=== PATIENT | male | born 1990 | race Caucasian/White ===

== ENCOUNTER 2018-03-05 18:47 | Emergency (ER) | payer BC ==
[~2018-03-05] VITALS: Ht 175.3 cm; Wt 91.0 kg
[2018-03-05 18:54] VITALS: TEMP 37; Ht 175.3 cm; Wt 91.0 kg
[2018-03-05] MEDS ORDERED: MoRPHine SULFATE 4 MG/ML 1 ML CARP\\VIAL IV STA ×2 (19:18→20:14)
[2018-03-05] MEDS ORDERED: ONDANSETRON INJ 2 MG/ML 2 ML VIAL IV STA ×2 (19:20→20:20)
--- NOTE | 2018-03-05 19:34 | EMERGENCY ROOM VISIT NOTE ---
ED Visit Note First contact with patient: 19:06 CHIEF COMPLAINT: Right ankle injury HISTORY OF PRESENTING ILLNESS: This is a 28-year-old male who presents to the emergency department with complaint of injury to his right ankle around 6 PM today. He states he was playing softball and slid into the base and caught his foot on the other player and then fell over top of his ankle. He reports significant swelling and deformity of the ankle and has been unable to walk on the ankle since the injury. He reports that he has normal feeling in the foot and has been able to move his toes. He states the pain is constant, throbbing, 6/10. He did not take any medications for the pain. He last ate at 11 AM today. He last drank at 7 PM just prior to arrival. He also notes that he had one beer around 5:30 PM today. He reports a previous injury to this ankle, states a grade 3 sprain, but denies any previous fractures. He states he also has some pain in the right calf. He denies hitting his head or loss of consciousness. He denies any other injuries. He denies any chest pain, shortness of breath, nausea or vomiting, or unusual rashes. REVIEW OF SYSTEMS: A complete 10 point review of systems was reviewed with the patient with pertinent positives and negatives as per history of present illness. All else were negative. PAST MEDICAL HISTORY: No significant past medical or surgical history. SOCIAL HISTORY: Lives at home. He denies tobacco use. He admits to occasional alcohol use. ALLERGIES: Reviewed in chart, see below. PHYSICAL EXAM: CONSTITUTIONAL: Pleasant and cooperative. No acute distress, but appears uncomfortable and in pain. Well appearing and well nourished. HEENT: Normocephalic, atraumatic. Pupils equal, round and reactive to light, EOMI. TMs normal. Pharynx normal. Moist mucous membranes. NECK: Supple, full active range of motion without discomfort. RESPIRATORY: Clear to auscultation bilaterally with no wheezing, crackles, rhonchi or stridor. Equal expansion bilaterally. CARDIOVASCULAR: Regular rate and rhythm with no murmurs, rubs or gallops. Normal peripheral perfusion. No edema. GASTROINTESTINAL: Soft, nontender, nondistended. No palpable masses or HSM. Bowel sounds present in all quadrants. MUSCULOSKELETAL: There is obvious deformity of the right ankle with apparent anteriorly dislocated ankle joint and tenting of the skin. There are no breaks of the skin or lacerations noted. DP and PT pulses are palpable and 2+, equal bilaterally. The foot is pink, warm, and well-perfused. Intact sensation of the foot. He is able to move the toes normally. He also has mild tenderness of the proximal fibula to palpation. INTEGUMENTARY: No rash or other significant dermatologic conditions noted. NEUROLOGIC: Alert and oriented X 4 with normal affect. Normal strength and sensation in all 4 extremities. No focal neurologic deficits noted. Normal speech. ED COURSE AND MEDICAL DECISION MAKING: CC: Patient presenting with complaint of right ankle injury DIFFERENTIAL DIAGNOSIS: Includes, but not limited to ankle dislocation, bimalleolar fracture, trimalleolar fracture, Maisonneuve fracture, calcaneal fracture, neurovascular injury, among others. IMAGING: R TIBIA/FIBULA 2 VIEWS ROUTINE CLINICAL HISTORY: Right ankle injury. COMPARISON: None FINDINGS: Note is made of an acute moderately displaced comminuted fracture which involves the proximal to mid shaft of the right fibula. There is disruption of the tibiotalar joint consistent with dislocation with multiple associated fracture fragments of the distal right tibia, including the posterior malleolus. Talar dome appears intact. A few nodules of soft tissue gas are suspected. IMPRESSION: 1. Fracture/dislocation deformity of the distal right tibia, as described above with disruption of the ankle mortise and multiple fracture fragments arising from the distal right tibia and a few locules of gas which raises the possibility of an open fracture. 2. Acute moderately displaced comminuted fracture of the proximal to mid shaft of the right fibula. ----- R ANKLE 2 VIEWS CLINICAL HISTORY: RIGHT ANKLE INJURY COMPARISON: None FINDINGS: Note is made of disruption of the ankle mortise with tibiotalar joint dislocation. The distal right tibia is located anterior to the talus. Several associated fracture fragments of the distal right tibia, including the posterior malleolus are noted. A few locules of soft tissue gas are noted. The mid shaft fibular fracture is better depicted on the right tibia and fibula radiographs. IMPRESSION: 1. Fracture/dislocation deformity of the distal right tibia, as described above with disruption of the ankle mortise and multiple fracture fragments arising from the distal right tibia and a few locules of gas which raises the possibility of an open fracture. 2. Acute moderately displaced comminuted fracture of the proximal to mid shaft of the right fibula. ----- R FOOT 2 VIEWS CLINICAL HISTORY: RIGHT ANKLE INJURY COMPARISON: None FINDINGS: Fracture/dislocation deformity of the distal right tibia and tibiotalar joint is better depicted on the right ankle radiographs. Tarsometatarsal joints are intact. No acute fracture within the right foot is identified. Subtalar joint appears intact. IMPRESSION: 1. No acute fracture within the right foot. 2. Tibiotalar joint dislocation/fracture deformity which is better depicted on the right ankle radiographs. ----- R ANKLE MIN 3 VIEWS ROUTINE CLINICAL HISTORY: Post reduction. COMPARISON: Right ankle radiographs March 05, 2018 at 7:32 PM. FINDINGS: Tibiotalar joint now appears aligned post reduction. Posterior malleolar fracture alignment has markedly improved and is only minimally distracted. A few small fracture fragments are noted. Talar dome appears intact. No residual ankle mortise widening is identified. IMPRESSION: Marked improvement in alignment of the fracture/dislocation of the right ankle, as described above. PROCEDURE NOTE: Right ankle reduction: Verbal and written consent obtained to perform the procedure. Time out was performed by Dr. Sosa. Conscious sedation performed by Dr. Sosa, see his note for more detail. Once appropriate sedation level achieved, the right ankle joint was reduced by myself by first placing the right foot in plantar flexion and providing axial traction to the joint, then gently dorsiflexing the joint until the reduction was achieved. The right ankle was easily reduced, with the ankle joint now appropriately aligned. The right leg was placed in posterior and stirrup orthoglass splint under my direct supervision, position was satisfactory. Neurovascular status was rechecked and intact. Post- reduction X-ray was reviewed by myself and Dr. Sosa and shows resolved dislocation of the right ankle, and the joint appears to be fairly well aligned. The patient was monitored post-sedation. Pt tolerated the procedure well with no known complications. MEDICATION RECONCILIATION: I attest that I have personally reviewed the patient 's current medication list. INITIAL VITAL SIGNS REVIEW: I reviewed the patient's initial vital signs and interpret them as follows: T: Afebrile; BP: Hypertensive; HR: Within normal limits; RR: Within normal limits; Pulse Ox: Within normal limits on room air. Blood pressure screening: The patient was found to have an elevated blood pressure, which was felt to be situational. SUMMARY: Patient was evaluated at bedside, history and physical exam performed. Patient is alert and oriented, in no acute distress, but appears uncomfortable and in pain, resting in the stretcher. There is obvious deformity of the right ankle joint with suspected posterior dislocation, tenting of the skin, but the foot is neurovascularly intact. The skin was carefully examined and there were no evidence of disruption of the skin to suggest an open fracture. Orders were placed at bedside for x-rays of the right foot, ankle, and tibia/ fibula to evaluate for trauma. IV placement and IV morphine ordered for pain. Patient was instructed to remain n.p.o. Patient discussed with Dr. Sosa, who agrees with my assessment and plan. Imaging reviewed as above, confirming dislocation of the right ankle, as well as ankle and midshaft fibula fracture. Patient was discussed on the phone with Dr. Alvarez, orthopedics, who agreed with our plans for emergent reduction, and will see the patient in his office for follow-up on . Sedation consent and procedure were performed by Dr. Sosa, please see his documentation for further details. Patient tolerated the procedure well with no known complications. Patient reassessed multiple times throughout ED stay, he remained stable, his pain was well controlled, and he was comfortable with going home. Patient was updated on all results and plan for discharge, he was encouraged to follow closely with orthopedic surgery. He was provided with a take-home pack and Rx for oxycodone, he was educated regarding this medication. He was educated regarding splint care and use of crutches. Patient was also given strict return precautions should his symptoms worsen, he verbalized understanding. Patient was discharged home in stable condition and ambulatory. (Emily De Leon, RIVAS) First contact with patient: 19:06 Consented for sedation by myself. Emergent given dislocation of the joint with some skin tenting. Advised the risks and benefits of this; he consented for sedation and procedure. N.p.o. for 8 hours for food but approximately 1 hours and some alcohol and Gatorade. Does not appear clinically intoxicated. X-rays obtained. Discussed with orthopedics. Sedation with ketamine 75mg utilized for reduction of right ankle dislocation without complication and standard monitoring. Easy reduction of right ankle dislocation fracture. Adequate realignment on postreduction x-rays. Posterior and stirrup splint of the right lower extremity complete. Intact neurovascular status afterwards. No conversion to open fracture no evidence of open fracture or laceration overlying the area. No complications from sedation. Awoke appropriately afterwards. Will have outpatient orthopedic follow-up and nonweightbearing in the right lower extremity with a posterior and stirrup splint in place. Procedural Sedation Indication R ankle dislocation Total time: 14 minutes. Written consent was obtained after the risks and benefits were explained to the patient, including, but not limited to aspiration, allergic reaction, breathing difficulties, cardiac complications, vomiting, pain, event recall, bleeding, and /or infection. Pre-sedation examination and paperwork completed. Nasal canula O2 and continuous end tidal CO2 monitoring, pulse oximetry, and cardiac monitoring were utilized. Suction, airway equipment, medications, respiratory equipment, and appropriate personnel were prepared prior to the initiation of the procedure. A time out was taken. Sedation was achieved utilizing 75 mg of ketamine. After I observed the patient had reached the appropriate level of sedation the main procedure was performed without complication. Sedation was discontinued and the monitoring continued. The patient recovered quickly from the effects of the medication without complication or adverse event. (Dhruv Sosa M.D.) Current/Historical Medications Scheduled PRN Oxycodone Ir (Roxicodone Ir), 1 TAB PO Q4H PRN for svr Vital Signs Date Time Temp Pulse Resp B/P (MAP) Pulse Ox O2 Delivery O2 Flow Rate FiO2 03/05/18 22:41 70 120/70 96 03/05/18 22:16 120/70 03/05/18 22:05 74 94 03/05/18 22:01 127/84 03/05/18 21:50 74 94 03/05/18 21:46 126/70 03/05/18 21:35 74 94 03/05/18 21:31 134/67 03/05/18 21:22 18 03/05/18 21:20 73 95 03/05/18 21:15 73 0 95 Room Air 03/05/18 21:01 148/79 03/05/18 21:00 75 11 97 Room Air 03/05/18 20:55 79 16 145/85 95 Room Air 03/05/18 20:50 79 14 144/79 95 Room Air 03/05/18 20:45 95 18 149/94 98 Room Air 03/05/18 20:40 90 12 143/99 98 Room Air 03/05/18 20:35 68 12 140/89 98 Room Air 03/05/18 20:33 67 03/05/18 18:54 37.0 88 16 166/74 97 Room Air (Dhruv Sosa M.D.) Medications Administered Medications (Trade) Dose Ordered Sig/Cindi Route Start Time Stop Time Status Last Admin Dose Admin Morphine Sulfate (MoRPHine SULFATE INJ) 4 mg NOW STAT IV 03/05/18 19:18 03/05/18 19:21 DC 03/05/18 19:32 4 MG Ondansetron HCl (Zofran Inj) 4 mg NOW STAT IV 03/05/18 19:20 03/05/18 19:21 DC 03/05/18 19:31 4 MG Morphine Sulfate (MoRPHine SULFATE INJ) 4 mg NOW STAT IV 03/05/18 20:14 03/05/18 20:15 DC 03/05/18 20:17 4 MG Sodium Chloride 1,000 ml @ 999 mls/hr Q1H1M STAT IV 03/05/18 20:18 03/05/18 21:18 DC 03/05/18 20:30 999 MLS/HR Ondansetron HCl (Zofran Inj) 4 mg NOW STAT IV 03/05/18 20:20 03/05/18 20:21 DC 03/05/18 20:30 4 MG Oxycodone/ Acetaminophen (Percocet 5-325mg Tab) 2 tab NOW ONCE PO 03/05/18 21:45 03/05/18 21:46 DC 03/05/18 21:50 2 TAB Oxycodone HCl (Roxicodone Immediate Rel 5MG Home Pack) 1 homepack UD ONCE PO 03/05/18 21:45 03/05/18 21:46 DC 03/05/18 21:46 1 HOMEPACK (Dhruv Sosa M.D.) Departure Information Impression Primary Impression: Dislocation of right ankle joint, initial encounter Additional Impressions: Fracture of distal end of tibia Fracture, fibula closed, shaft Dispostion Home / Self-Care Condition GOOD Prescriptions Oxycodone Ir (Roxicodone Ir) 5 Mg Tab 1 TAB PO Q4H Y for svr, #20 TAB For Initial Treatment Prov: Emily De Leon CRNP 03/05/18 Patient Instructions ED Compartment Syndrome At Risk For, ED Dislocated Ankle, ED Fx Ankle General, Formerly [facility], 1928–1983 Additional Instructions You have been evaluated and treated in the emergency department today for your right ankle injury. You were found to have an ankle joint dislocation, with fractures to the ankle and midshaft of the fibula bone. Keep the splint on at all times, and do not get it wet. Use the crutches to stay completely off of the right foot. Keep the ankle elevated above the level of the heart as much as possible to help reduce pain and swelling. You may apply an ice pack over top of the splint for the next 2 days to help reduce pain and swelling as well. You have been prescribed oxycodone 5 mg to be taken 1 tablet every 4-6 hours as needed for severe pain. This is a narcotic. Do not perform any activities where you need to be fully aware, as this medication may make you drowsy. Please take with food, as it may cause stomach upset. For mild pain, you may take extra strength Tylenol (acetaminophen) 500 mg tablets 1 tablet every 4-6 hours as needed. Do not take more than 3000 mg of acetaminophen in 24 hours. You will need to follow-up with an orthopedic surgeon within the next few days. Your injuries will most likely require surgical repair. Please call your primary care provider to get referred to a local orthopedic surgeon when you are home. Take the disc of your x-rays with you to your appointment. Please return to the emergency department for severe worsening pain or severe worsening swelling, loss of feeling in the foot or leg, discoloration of the toes (purple, blue, white), or any other concerns. Work Instructions Return To Work: 5 days (Emily De Leon CRNP) Problem Qualifiers Additional Impressions: Fracture of distal end of tibia Encounter type: initial encounter Fracture type: closed Fracture alignment : displaced Laterality: right Fracture, fibula closed, shaft Encounter type: initial encounter Fracture morphology: comminuted Fracture alignment: displaced Laterality: right Qualified Codes: S82.451A - Displaced comminuted fracture of shaft of right fibula, initial encounter for closed fracture
--- NOTE | 2018-03-05 20:05 | EMERGENCY ROOM VISIT NOTE ---
Pre-Mod Sedation Assessment General Date of Moderate Sedation: Mar 05, 2018. Vital Signs: Vital Signs Past 12 Hours Date Time Temp Pulse Resp B/P (MAP) Pulse Ox O2 Delivery O2 Flow Rate FiO2 03/05/18 18:54 37.0 88 16 166/74 97 Room Air Review Cardiovascular: regular rate, rhythm, no edema, normal peripheral pulses Abdomen: normal bowel sounds, non tender, soft Lungs: chest non-tender, lungs clear, normal breath sounds, no respiratory distress Airway Class: I Pre-Sedation Airway Assessment Oral Cavity: WNL Short Thick Neck: No Hx of Sleep Apnea: No Smoking Status: Never Smoker Mallampati Classification: Class I ASA Classification: Class I Procedure Planning Contraindications-for Mod Sed: None Yes Notes The planned sedation has been discussed with the patient and consent obtained. I have identified the patient, determined the appropriateness of sedation and have assessed the patient immediately prior to the procedure. Advised given injury of need to proceed with sedation to limit morbidity to the right foot. All medicine(s) and interventions are by my order.
--- NOTE | 2018-03-05 20:12 | DIAGNOSTIC IMAGING REPORT ---
R TIBIA/FIBULA 2 VIEWS ROUTINE CLINICAL HISTORY: Right ankle injury. COMPARISON: None FINDINGS: Note is made of an acute moderately displaced comminuted fracture which involves the proximal to mid shaft of the right fibula. There is disruption of the tibiotalar joint consistent with dislocation with multiple associated fracture fragments of the distal right tibia, including the posterior malleolus. Talar dome appears intact. A few nodules of soft tissue gas are suspected. IMPRESSION: 1. Fracture/dislocation deformity of the distal right tibia, as described above with disruption of the ankle mortise and multiple fracture fragments arising from the distal right tibia and a few locules of gas which raises the possibility of an open fracture. 2. Acute moderately displaced comminuted fracture of the proximal to mid shaft of the right fibula. Electronically signed by: Joel Lea M.D. 03/05/2018 8:11 PM Dictated Date/Time: 03/05/2018 8:07 PM
--- NOTE | 2018-03-05 20:13 | DIAGNOSTIC IMAGING REPORT ---
R ANKLE 2 VIEWS CLINICAL HISTORY: RIGHT ANKLE INJURY COMPARISON: None FINDINGS: Note is made of disruption of the ankle mortise with tibiotalar joint dislocation. The distal right tibia is located anterior to the talus. Several associated fracture fragments of the distal right tibia, including the posterior malleolus are noted. A few locules of soft tissue gas are noted. The mid shaft fibular fracture is better depicted on the right tibia and fibula radiographs. IMPRESSION: 1. Fracture/dislocation deformity of the distal right tibia, as described above with disruption of the ankle mortise and multiple fracture fragments arising from the distal right tibia and a few locules of gas which raises the possibility of an open fracture. 2. Acute moderately displaced comminuted fracture of the proximal to mid shaft of the right fibula. Electronically signed by: Joel Lea M.D. 03/05/2018 8:12 PM Dictated Date/Time: 03/05/2018 8:11 PM
--- NOTE | 2018-03-05 20:14 | DIAGNOSTIC IMAGING REPORT ---
R FOOT 2 VIEWS CLINICAL HISTORY: RIGHT ANKLE INJURY COMPARISON: None FINDINGS: Fracture/dislocation deformity of the distal right tibia and tibiotalar joint is better depicted on the right ankle radiographs. Tarsometatarsal joints are intact. No acute fracture within the right foot is identified. Subtalar joint appears intact. IMPRESSION: 1. No acute fracture within the right foot. 2. Tibiotalar joint dislocation/fracture deformity which is better depicted on the right ankle radiographs. Electronically signed by: Joel Lea M.D. 03/05/2018 8:13 PM Dictated Date/Time: 03/05/2018 8:12 PM
[2018-03-05] MEDS ORDERED: SODIUM CHLORIDE 0.9% 1000ML 1,000 ML IV STA (20:18)
[2018-03-05] MEDS ORDERED: KETAMINE HCL INJ 50 MG/ML 10 ML VIAL IV STA (20:20)
--- NOTE | 2018-03-05 21:20 | DIAGNOSTIC IMAGING REPORT ---
R ANKLE MIN 3 VIEWS ROUTINE CLINICAL HISTORY: Post reduction. COMPARISON: Right ankle radiographs March 05, 2018 at 7:32 PM. FINDINGS: Tibiotalar joint now appears aligned post reduction. Posterior malleolar fracture alignment has markedly improved and is only minimally distracted. A few small fracture fragments are noted. Talar dome appears intact. No residual ankle mortise widening is identified. IMPRESSION: Marked improvement in alignment of the fracture/dislocation of the right ankle, as described above. Electronically signed by: Joel Lea M.D. 03/05/2018 9:19 PM Dictated Date/Time: 03/05/2018 9:17 PM
[2018-03-05] MEDS ORDERED: OXYCODONE IR HOME PACK PO ONE (21:45)
[2018-03-05] MEDS ORDERED: OXYCODONE/ACETAMINOPHEN 5-325 TAB PO ONE (21:45)
[2018-03-05] MEDS ORDERED: OXYC-90 PO (21:50)
[2018-03-05 22:41] VITALS: BP 120/70; PULSE 70; O2SAT 96
--- NOTE | 2018-03-06 00:12 | EMERGENCY ROOM VISIT NOTE ---
Post-Moderate Sedation Plan General Date of Moderate Sedation Mar 06, 2018. Vital Signs: Vital Signs Past 12 Hours Date Time Temp Pulse Resp B/P (MAP) Pulse Ox O2 Delivery O2 Flow Rate FiO2 03/05/18 22:41 70 120/70 96 03/05/18 22:16 120/70 03/05/18 22:05 74 94 03/05/18 22:01 127/84 03/05/18 21:50 74 94 03/05/18 21:46 126/70 03/05/18 21:35 74 94 03/05/18 21:31 134/67 03/05/18 21:22 18 03/05/18 21:20 73 95 03/05/18 21:15 73 0 95 Room Air 03/05/18 21:01 148/79 03/05/18 21:00 75 11 97 Room Air 03/05/18 20:55 79 16 145/85 95 Room Air 03/05/18 20:50 79 14 144/79 95 Room Air 03/05/18 20:45 95 18 149/94 98 Room Air 03/05/18 20:40 90 12 143/99 98 Room Air 03/05/18 20:35 68 12 140/89 98 Room Air 03/05/18 20:33 67 03/05/18 18:54 37.0 88 16 166/74 97 Room Air Review - Discharge Plan Post Moderate Sedation Plan: On clinical assessment, the patient appears to have tolerated the conscious sedation without complications. Patient is recovering as anticipated. Patient will continue to be monitored by nursing and may be discharged when conscious sedation discharge criteria are met.
== END 2018-03-05 22:43 | disposition home or self-care (01) ==
LOC: C.EDB 18:49 → C.EDD 22:43
DX: S82.451A Displaced comminuted fracture of shaft of right fibula, initial encounter for closed fracture (principal); S93.04XA Dislocation of right ankle joint, initial encounter; W51.XXXA Accidental striking against or bumped into by another person, initial encounter; Y93.64 Activity, baseball